=== PATIENT | female | born 1970 | race Caucasian/White ===

== ENCOUNTER 2023-07-31 09:56 | Emergency (ER) | payer MEDICARE, SELFPAY ==
[2023-07-31] VITALS (7 sets, daily range): BP systolic 133–152; BP diastolic 65–96; PULSE 53–76; RESP 16–20; TEMP 36.9; O2SAT 94–99
--- NOTE | ~2023-07-31 | XR_ITS ---
XR chest 2V DATE: 07/31/2023 11:19 INDICATION: Productive cough TECHNIQUE: PA and lateral views COMPARISON: None FINDINGS: Normal heart size. No hilar or mediastinal enlargement. No pulmonary infiltrate or consolid ation, pleural effusion or pulmonary vascular congestion or pneumothorax. Included skeletal structures are unremarkable. IMPRESSION: No active cardiopulmonary disease Reviewed, dictated and finalized at location A. ITAL MONITOR
--- NOTE | 2023-07-31 10:25 | ECG_ITS ---
Measurements Intervals [place] Rate: 50 P: 51 [place]: 194 QRS: 0 QRSD: 85 T: 38 QT: 429 QTc: 394 Interpretive Statements SINUS BRADYCARDIA LOW QRS VOLTAGE IN PRECORDIAL LEADS [QRS DEFLECTION < 1.0 mV IN CHEST LEADS] POSSIBLE OLD aNTEROSEPTAL MYOCARDIAL INFARCTION NO PREVIOUS ECG AVAILABLE FOR COMPARISON Electronically Signed On 07-31-2023 13:56:34 BUILDING PERFORMANCE SPECIALIST by Cathleen Irene M.D.
--- NOTE | 2023-07-31 10:27 | ED.URI ---
HPI - URI/Sore Throat General Chief Complaint: Upper Respiratory Infection Stated Complaint: productive cough Time Seen by Provider: 07/31/23 10:14 History of Present Illness HPI Narrative: 53-year-old female with a self-reported history of asthma reports for evaluation for multiple medical complaints, mainly a productive cough for 3 months. Patient states she was recently treated with amoxicillin by her PCP for bronchitis. States she finished the antibiotics 1 week ago and felt mildly better, however her symptoms did not fully go away. States in the past 3 days her symptoms worsened again and she is now coughing up large amounts of phlegm. She is also reporting nausea and vomiting for the past 3 days. States that she has constant right-sided anterior chest pain without aggravating or alleviating factors and is concerned she has pneumonia. She reports intermittent dyspnea. Denies abdominal pain, fever, otalgia, sore throat. She is also reporting dysuria, denies hematuria. No history of CHF. No known history of COPD, however she does endorse smoking one pack per day since she was 17 years old. Related Data Allergies Allergy/AdvReac Type Severity Reaction Status Date / Time Sulfa (Sulfonamide Allergy Unknown Stopped Verified 07/31/23 10:15 Antibiotics) Breathing SULFAMETHOXAZOLE (Generic Allergy Y Uncoded 01/28/03 12:32 Allergy) Review of Systems Review of Systems: CONSTITUTIONAL: Denies fever, chills, or sweats. EYES: Denies visual changes, redness, or discharge. ENT: See HPI CARDIOVASCULAR: See HPI RESPIRATORY: See HPI GASTROINTESTINAL: See HPI GENITOURINARY: See HPI SKIN: Denies rash or itching. MUSCULOSKELETAL: Denies back pain, joint pain, or myalgia. NEUROLOGIC: Denies headache, numbness, or weakness. PSYCHIATRIC: Denies anxiety or depression. Exam Narrative: GENERAL: Well-appearing, well-nourished, and in no acute distress. Patient resting comfortably in exam bed. She is satting 98% on room air. No labored breathing. HEAD: Normocephalic, atraumatic. EYES: PERRLA and EOMI. ENT: Nares clear, no rhinorrhea or epistaxis. Mucous membranes moist. NECK: Supple. CHEST: No respiratory distress. Mild wheezing in the right upper lobe, otherwise no rale or rhonchi throughout. No labored breathing. HEART: Regular rate and rhythm. No murmur heard. Normal peripheral pulses. ABDOMEN: Soft, nontender, nondistended, normal active bowel sounds. No CVA tenderness. EXTREMITIES: Normal range of motion. No edema. Negative Homans bilaterally. SKIN: Warm, dry, no rash. NEURO: No focal deficits. Alert and oriented x3 Course Vital Signs Vital signs: Vital Signs Temperature 98.4 F 07/31/23 09:58 Pulse Rate 60 07/31/23 09:58 Respiratory Rate 16 07/31/23 09:58 Blood Pressure 152/80 H 07/31/23 09:58 Pulse Oximetry 98 07/31/23 09:58 Temperature 98.4 F 07/31/23 09:58 Pulse Rate 76 07/31/23 17:48 Respiratory Rate 18 07/31/23 17:48 Blood Pressure 133/96 H 07/31/23 17:48 Pulse Oximetry 95 07/31/23 17:48 MDM - URI/Sore Throat MDM Narrative Medical decision making narrative: 53-year-old female reports for evaluation for multiple medical complaints, mostly a productive cough for the past 3 months. See HPI for further history. Vitals significant for mildly elevated blood pressure 152/80, otherwise unremarkable. She is afebrile and satting 98% on room air without labored breathing. Labs show no leukocytosis or anemia. Chemistries unremarkable. Urinalysis unremarkable, no UTI. COVID, flu RSV are negative. D-dimer less than 0.27, wells score for PE is low risk. BNP is normal when age adjusted. Initial EKG shows sinus bradycardia with rate of 50, possible anterior septal Q-waves, no ST elevations or depressions. Troponins normal x2. Magnesium normal at 2.1. Lipase normal at 67. Chest x-ray shows no acute cardiopulmonary abnormality. The patient is not on a beta-flavia o
[2023-07-31] MEDS: IPRATROPIUM BR 0.02% INH SOLN 0.5 MG/2.5 ML VIAL INHALATION (10:35)
[2023-07-31] MEDS: ALBUTEROL SULFATE NEB 2.5 MG/3 ML INH INHALATION (10:35)
[2023-07-31] MEDS: MAGNESIUM SULF 2 GM/WATER 50ML 2 GM/50 ML BAG IVPB (10:38)
[2023-07-31] MEDS: methylPREDNISolone SOD SUCC 125 MG VIAL IV PUSH (10:39)
[2023-07-31 11:00] LABS: Basophils Absolute Auto 0.1 K/mm3 (0.0-0.1); Basophils Percent Auto 0.7 % (0.2-1.2); Eosinophils Absolute Auto 0.1 K/mm3 (0-0.3); Eosinophils Percent Auto 1.5 % (0-4.4); Hematocrit 38.9 % (37.0-47.0); Hemoglobin 12.5 g/dL (12.0-15.0); Immature Granulocyte Absolute 0.02 K/mm3 (0.00-0.031); Immature Granulocyte Percent A 0.3 % (0-0.5); Lymphocytes Absolute Auto 1.65 K/mm3 (0.9-3.2); Lymphocytes Percent Auto 22.5 % (18.3-44.2); Mean Corpuscular HGB Conc 32.1 g/dl (32-36); Mean Corpuscular Hemoglobin 32.5 pg (26-34); Mean Platelet Volume 10.4 fl (7.4-10.4); Monocytes Absolute Auto 0.4 K/mm3 (0.1-0.6); Neutrophils Absolute Auto 5.1 K/mm3 (1.3-6.7); Platelet Count Result 196 k/mm3 (150-375); Red Blood Count 3.85 M/mm3 (4.2-5.4); Red Cell Distribution Width 12.5 % (11.5-14.5); White Blood Count 7.3 K/mm3 (4.5-10.0)
[2023-07-31 11:14] LABS: Alanine Aminotransferase 19 U/L (6-35); Alkaline Phosphatase 64 U/L (38-126); Anion Gap 5 mmol/L (8-16); Aspartate Amino Transferase 20 U/L (14-36); Bilirubin,Total 0.3 mg/dL (0.2-1.3); Blood Urea Nitrogen 17 mg/dL (7-17); Calcium 9.5 mg/dL (8.4-10.2); Carbon Dioxide 27 mmol/L (22-30); Chloride 105 mmol/L (98-107); Estimated CRCL calculation 89 ml/min; Estimated Glomerular Filt Rate > 60; Glucose 102 mg/dL (65-110); Lipase 67 U/L (23-300); Magnesium 2.1 mg/dL (1.6-2.3); Potassium 3.7 mmol/L (3.4-5.0); Sodium 137 mmol/L (137-145)
[2023-07-31 11:25] LABS: NT Pro B Type Natriuretic Pept 231 pg/mL (19.9-100); Troponin I < 0.012 ng/mL (0.000-0.034)
[2023-07-31 11:36] LABS: Influenza A QL RT-PCR Negative (Negative); Influenza B QL RT-PCR Negative (Negative); RSV RNA, RT-PCR Negative (Negative); SARS-CoV-2 RNA PCR Negative (Negative)
[2023-07-31 11:46] LABS: D Dimer < 0.27 ug/mL (<0.48)
[2023-07-31 11:47] LABS: Appearance Urine Clear (Clear); Bilirubin Urine Negative (Negative); Blood Urine Negative (Negative); Color Urine Yellow (Yellow); Glucose Urine UA Negative (Negative); Ketones Urine Negative (Negative); Leukocyte Esterase Ur Negative LEU/UL (Negative); Nitrate Urine Negative (Negative); Protein Urine Negative (Negative); Urobilinogen Urine 0.2 mg/dL (<2.0); pH Urine 6.5 (5.0-9.0)
[2023-07-31 11:55] LABS: Add Urine Microscopic? NO
[2023-07-31 13:50] LABS: Troponin I < 0.012 ng/mL (0.000-0.034)
--- NOTE | 2023-07-31 14:06 | ECG_ITS ---
Measurements Intervals [place] Rate: 48 P: 47 [place]: 201 QRS: 11 QRSD: 79 T: 18 QT: 445 QTc: 402 Interpretive Statements SINUS BRADYCARDIA Poor R-wave progression, cannot rule out old anteroseptal [place] COMPARED TO ECG 07/31/2023 10:34:49 NO SIGNIFICANT CHANGES Electronically Signed On 07-31-2023 17:38:15 ACTUARIAL DIRECTOR by Cathleen Irene M.D.
--- NOTE | 2023-07-31 15:40 | ECG_ITS ---
Measurements Intervals [place] Rate: 53 P: 22 [place]: 211 QRS: -9 QRSD: 76 T: 8 QT: 424 QTc: 400 Interpretive Statements SINUS BRADYCARDIA WITH FIRST DEGREE AV BLOCK LOW QRS VOLTAGE IN PRECORDIAL LEADS POOR R-WAVE PROGRESSION, CANNOT RULE OUT OLD ANTEROSEPTAL SC COMPARED TO PRIOR TRACING: FIRST DEGREE AV BLOCK NOW PRESENT Electronically Signed On 07-31-2023 17:39:26 INFORMATION CLERK CASHIER by Cathleen Irene M.D.
[2023-07-31 17:00] LABS: Free T4 Free Thyroxine Reflex 0.77 ng/dL (0.78-2.19)
== END 2023-07-31 17:50 | disposition home or self-care (01) ==
PROVIDERS: Emergency Provider Physician Assistant; PCP Pediatrics
DX: J40 Bronchitis, not specified as acute or chronic (principal); R07.89 Other chest pain; E03.9 Hypothyroidism, unspecified; F17.210 Nicotine dependence, cigarettes, uncomplicated; Z20.822 Contact with and (suspected) exposure to COVID-19
CPT/HCPCS: 36415; 71046; 80053; 81003; 83690; 83735; 83880; 84439; 84443; 84484; 85025; 85380; 87637; 93005; 94640; 96365; 96375; 99284; J2930; J3475